=== PATIENT | female | born 1970 | race Caucasian/White ===

== ENCOUNTER 2020-06-26 14:46 | Emergency (ER) | payer OTHER, SELFPAY ==
--- NOTE | ~2020-06-26 | XR_ITS ---
EXAMINATION: XR CHEST CLINICAL INFORMATION: Shortness of breath and asthma COMPARISON: Previous chest x-ray most recent February 2019 TECHNIQUE: 2 views of the chest were obtained. FINDINGS: The cardiac and mediastinal contours are normal. There is question of a right perihilar infiltrate. The lungs are otherwise clear. There is no pleural effusion or pneumothorax. Bony structures are unremarkable. XR/XR chest 2V IMPRESSION: Question right perihilar infiltrate.
[2020-06-26 15:43] VITALS: BP 142/94; PULSE 96; RESP 18; TEMP 36.7; O2SAT 95; BMI 36.6
--- NOTE | 2020-06-26 16:09 | ED.ASTHMA ---
HPI - Asthma General Chief Complaint: Asthma Stated Complaint: ASTHMA Time Seen by Provider: 06/26/20 16:05 Source: patient Mode of arrival: ambulatory Limitations: no limitations History of Present Illness HPI Narrative: 49-year-old female with a past medical history of asthma taking wixela daily, albuterol p.r.n. here with complaints of cough with wheezing x6 days. Patient tells me she has been taking her wixela daily. She has noticed several times after taking her albuterol that she gets nasal congestion, throat itching and so she has stopped using this due to concern for allergy. No fevers, chills. Cough is not productive. No shortness of breath or chest pain or leg swelling or pain. Related Data Previous Rx's Medication Instructions Recorded azithromycin 250 mg PO DAILY 4 Days #4 tab 06/26/20 levalbuterol tartrate [Xopenex HFA] 2 inh INHALATION Q4-6H PRN #15 g 06/26/20 prednisone 40 mg PO DAILY #8 tab 06/26/20 Allergies Allergy/AdvReac Type Severity Reaction Status Date / Time sulfamethoxazole Allergy Mild ANAPHYLAXIS Verified 06/26/20 15:42 [From Bactrim] trimethoprim [From Bactrim] Allergy Mild ANAPHYLAXIS Verified 06/26/20 15:42 citric acid Allergy Unknown ABD PAIN Verified 06/26/20 15:42 [From LINDA-SELTZER] sodium bicarbonate Allergy Unknown ABD PAIN Verified 06/26/20 15:42 [From LINDA-SELTZER] Review of Systems Review of Systems: Yes all other systems are reviewed and are negative Constitutional: Constitutional: Reports no additional constitutional complaints, Denies body ache(s), Denies chills, Denies fever(s), Denies headache(s) and Denies weakness Eyes: Eyes: Reports no additional eye complaints and Denies change in vision ENT: Reports system reviewed and no additional complaints, except as documented, Denies dizziness, Denies headache(s), Denies nasal congestion, Denies nasal discharge and Denies neck pain Cardiovascular: Cardiovascular: Reports no additional cardiovascular complaints, Denies chest pain, Denies leg edema and Denies dyspnea Respiratory: Respiratory: Reports no additional respiratory complaints, Reports cough and Denies dyspnea Gastrointestinal: Gastrointestinal: Reports no additional gastrointestinal complaints, Denies abdominal pain, Denies diarrhea, Denies nausea and Denies vomiting Genitourinary: Genitourinary: Reports no additional female genitourinary complaints and Denies urinary incontinence Musculoskeletal: Musculoskeletal: Reports no additional musculoskeletal complaints, Denies back pain, Denies arthralgias, Denies joint swelling, Denies neck pain, Denies numbness and Denies tingling Integumentary/Breasts: Skin/Breast: Reports system reviewed and no additional complaints, except as docu and Denies rash Neurologic: Reports system reviewed and no additional complaints, except as documented, Denies Abnormal speech present, Denies dizziness, Denies headache(s), Denies numbness, Denies tingling and Denies weakness PMFSH Past Medical History Attestation statement: The following information was validated with the patient. Source: old records reviewed and nursing notes reviewed Medical History Asthma Social History Social History Smoked in Last 30 Days: No Use of substances other than those prescribed or required for medical reasons: No Advance Directives: No Advance Directives Information Provided: No Physical Exam Vital Signs: Vital Signs: Last Vital Signs Temp 98.1 F 06/26/20 15:43 Pulse 103 H 06/26/20 18:20 Resp 18 06/26/20 17:40 BP 170/96 H 06/26/20 17:40 Pulse Ox 97 06/26/20 17:40 Body Mass Index 36.6 Const: General: cooperative, healthy appearing, comfortable and no acute distress Orientation/consciousness: patient oriented x3 Limitations: no limitations HENMT: Head: Yes normal to inspection Ears: hearing grossly normal bilaterally General nose exam: Normal external nose present Face and sinus: Yes normal facial exam Mouth: Normal oral and palatal mucosa present Throat: Yes posterior oropharynx normal Eyes: General: appearance normal, both eyes and all related structures Pupils: Equal, round and reactive pupils present Neck: Neck: Yes normal visual inspection Chest: Chest palpation & inspection: normal inspection of the chest Resp: Other: Mild expiratory wheezing throughout Effort & Inspection: normal respiratory effort Cardio: Rate: regular rate Rhythm: regular rhythm Peripheral pulses: Peripheral pulses 2+ throughout GI: Inspection: Yes normal to inspection Palpation (GI): Soft to palpation and nontender Auscultation: normal bowel sounds Back/Spine/Pelvis: Thoracic/Lumbar Spine: thoracic and lumbar spine normal to inspection Skin: General skin exam: no rashes or lesions noted Neuro: General: patient oriented x3, no focal motor deficits and normal sensation to monofilament Cranial nerves: Yes Equal, round and reactive pupils present Cognition (Neuro): normal cognition Speech: No Abnormal speech present Gait exam (Neuro): Normal gait present Motor exam (neuro): 5/5 motor strength present throughout Extrem: General: Yes normal to inspection, Yes no pedal edema and Yes no calf tenderness Course Course Course Narrative: 49-year-old female with past medical history of asthma here with cough and wheezing x6 days. taking her controller medication daily as prescribed. Has not been taking her albuterol due to complaints of associated nasal congestion and throat itching and concern for allergy to the inhaler. On exam has mild expiratory wheezing. Oxygen saturations stable. Will check chest x-ray. COVID screen. Try Xopenex. Give prednisone p.o. 1700-X-ray concerning for RLL PNA. Will add PO antibiotics. 1820-Covid screen negative. Tolerated xopenex with no issues. Feeling improved. Stable saturations. Afebrile. Lung sounds are improved. Reviewed worrisome signs and symptoms when to return to the emergency department. Comfortable with discharge home. [facility] - Asthma Medical Records Attestation: I reviewed the patient's medical records. Lab Data Attestation: I reviewed the patient's lab results. Labs: Lab Results 06/26/20 Range/Units 17:38 COVID-19 (INDRA) Negative (Negative) COVID-19 Clin Com See Note Imaging Data Chest x-ray: Attestation: I personally reviewed and interpreted this imaging study as follows: Radiologist's impression: EXAMINATION: XR CHEST CLINICAL INFORMATION: Shortness of breath and asthma COMPARISON: Previous chest x-ray most recent February 2019 TECHNIQUE: 2 views of the chest were obtained. FINDINGS: The cardiac and mediastinal contours are normal. There is question of a right perihilar infiltrate. The lungs are otherwise clear. There is no pleural effusion or pneumothorax. Bony structures are unremarkable. XR/XR chest 2V IMPRESSION: Question right perihilar infiltrate. Discharge Plan Discharge Clinical Impression: Asthma with acute exacerbation Qualifiers: Asthma severity: mild Asthma persistence: persistent Qualified Code(s): J45.31 - Mild persistent asthma with (acute) exacerbation Pneumonia Qualifiers: Pneumonia type: due to unspecified organism Laterality: right Lung location: lower lobe of lung Qualified Code(s): J18.9 - Pneumonia, unspecified organism Patient Disposition: Home, Self-Care Instructions: Asthma (ED), Bacterial Pneumonia (ED) Additional Instructions: Start your prednisone and antibiotics tomorrow Use Xopenex instead of albuterol Follow-up with your operational meteorologist and rn birthing Prescriptions: New azithromycin 250 mg tablet 250 mg PO DAILY 4 Days Qty: 4 RF: 0 prednisone 20 mg tablet 40 mg PO DAILY Qty: 8 RF: 0 levalbuterol tartrate [Xopenex HFA] 45 mcg/actuation HFA aerosol inhaler 2 inh inhalation Q4-6H PRN (Reason: shortness of breath or wheezing) Qty: 15 RF: 0 Referrals: Aroldo Ryan MD [Primary Care Provider] - 2 days Interventions: ED Discharge Assessment Last Done: 06/26/20 18:53 Discharge Date/Time: 06/26/20 18:54
[2020-06-26] MEDS: predniSONE 20 MG TABLET 60 MG PO (17:36)
[2020-06-26] MEDS: Azithromycin 500 MG TABLET PO (17:36)
[2020-06-26 17:40] VITALS: BP 170/96; PULSE 97; RESP 18; O2SAT 97
[2020-06-26 18:08] LABS: COVID-19 Test Negative (Negative)
[2020-06-26 18:20] VITALS: PULSE 103; O2SAT 95
== END 2020-06-26 18:54 | disposition home or self-care (01) ==
PROVIDERS: Nurse Practitioner Family; Emergency Provider Emergency Medicine Emergency Medical Services; PCP Internal Medicine
DX: J18.9 Pneumonia, unspecified organism (principal); J45.31 Mild persistent asthma with (acute) exacerbation; Z20.822 Contact with and (suspected) exposure to COVID-19
CPT/HCPCS: 36415; 71046; 87635; 94640; 99284

== ENCOUNTER 2020-08-09 20:09 | Emergency (ER) | payer OTHER, SELFPAY ==
--- NOTE | ~2020-08-09 | XR_ITS ---
EXAMINATION: XR CHEST CLINICAL INFORMATION: Dyspnea. COMPARISON: Chest x-ray 06/26/2020 TECHNIQUE: 2 views of the chest were obtained. FINDINGS: No significant abnormality is noted involving the heart, lungs, mediastinum, bony thorax or soft tissues. XR/XR chest 2V IMPRESSION: Unremarkable examination.
[2020-08-09 20:14] VITALS: BP 147/78; PULSE 121; RESP 40; TEMP 36.6; O2SAT 95; BMI 80.6
--- NOTE | 2020-08-09 20:19 | ECG_ITS ---
Test Reason : ASTHMA Blood Pressure : / mmHG Vent. Rate : 109 BPM Atrial Rate : 109 BPM P-R Int : 146 ms QRS Dur : 066 ms QT Int : 352 ms P-R-T Axes : 068 017 -12 degrees QTc Int : 474 ms Sinus tachycardia Low voltage QRS Cannot rule out Anterior infarct (cited on or before 20-MAY-2010) Abnormal ECG When compared with ECG of 14-DEC-2018 23:18, No significant change was found Referred By: Generic ED Physician Electronically Signed By:Palmer Hall
[2020-08-09 20:49] LABS: MANUAL DIFF FLAG NO
--- NOTE | 2020-08-09 20:49 | ED.ASTHMA ---
HPI - Asthma General Chief Complaint: Asthma Stated Complaint: Asthma Time Seen by Provider: 08/09/20 20:49 Source: patient Mode of arrival: ambulatory Limitations: no limitations History of Present Illness HPI Narrative: cough and increasing wheezing, recent pneumonia, COVID was negative during pneumonia MD complaint: asthma attack Onset (ago): day(s) Severity: moderate Associated symptoms: dry cough Asthma History: history of frequent attacks Related Data Current Asthma Therapy: inhaled bronchodilator Previous Rx's Medication Instructions Recorded azithromycin 250 mg PO DAILY 4 Days #4 tab 06/26/20 levalbuterol tartrate [Xopenex HFA] 2 inh INHALATION Q4-6H PRN #15 g 06/26/20 prednisone 40 mg PO DAILY #8 tab 06/26/20 prednisone 60 mg PO DAILY #12 tab 08/09/20 Allergies Allergy/AdvReac Type Severity Reaction Status Date / Time sulfamethoxazole Allergy Mild ANAPHYLAXIS Verified 08/09/20 20:14 [From Bactrim] trimethoprim [From Bactrim] Allergy Mild ANAPHYLAXIS Verified 08/09/20 20:14 citric acid Allergy Unknown ABD PAIN Verified 08/09/20 20:14 [From LINDA-SELTZER] sodium bicarbonate Allergy Unknown ABD PAIN Verified 08/09/20 20:14 [From LINDA-SELTZER] Review of Systems Constitutional: Constitutional: Reports no additional constitutional complaints Eyes: Eyes: Reports no additional eye complaints ENT: Denies dizziness Cardiovascular: Cardiovascular: Reports no additional cardiovascular complaints Respiratory: Respiratory: Reports as per HPI Gastrointestinal: Gastrointestinal: Reports no additional gastrointestinal complaints Genitourinary: Genitourinary: Reports no additional female genitourinary complaints Musculoskeletal: Musculoskeletal: Reports no additional musculoskeletal complaints Integumentary/Breasts: Skin/Breast: Denies rash Neurologic: Reports system reviewed and no additional complaints, except as documented, Denies dizziness and Denies Sensory deficit (Neuro) Psychiatric: Psychiatric: Denies anxiety [facility] Past Medical History Medical History Asthma Social History Social History Advance Directives: No Advance Directives Information Provided: Yes Physical Exam Vital Signs: Vital Signs: Last Vital Signs Temp 97.9 F 08/09/20 20:14 Pulse 121 H 08/09/20 20:14 Resp 40 H 05/14/21 20:14 BP 147/78 H 08/09/20 20:14 Pulse Ox 95 08/09/20 20:14 Body Mass Index 80.6 Const: Other: slightly short of breath, coughing Nutritional Appearance: obese Orientation/consciousness: oriented to person and patient oriented x3 Limitations: no limitations HENMT: Head: Yes normal to inspection Ears: external ears normal General nose exam: Normal external nose present Mouth: Normal oral and palatal mucosa present and oropharynx normal Throat: Yes posterior oropharynx normal Eyes: General: appearance normal, both eyes and all related structures Neck: Other: supple Neck: Yes normal visual inspection Chest: Chest palpation & inspection: normal inspection of the chest Resp: Other: bilateral wheezing Cardio: Other: tachycardia Jugular venous distension: no JVD Rate: regular rate Rhythm: regular rhythm Heart sounds: S1 normal heart sound present and S2 normal heart sound present GI: Inspection: Yes normal to inspection Palpation (GI): Soft to palpation, nontender and No hepatosplenomegaly present Auscultation: normal bowel sounds : General: Yes no CVA tenderness Back/Spine/Pelvis: Back: no CVA tenderness Skin: General skin exam: no rashes or lesions noted Neuro: General: oriented to person and patient oriented x3 Cranial nerves: Yes CN's II-XII intact bilaterally Motor exam (neuro): 5/5 motor strength present throughout Sensory Exam: No Sensory deficit (Neuro) Extrem: General: Yes normal to inspection Psych: Appearance: grossly normal Course Course Course Narrative: xray, covid, blood work all negative will dc on prednisone for asthma exacerbation MDM - Asthma Differential Diagnosis Differential diagnosis: Likely Acute exacerbation, Pneumonia and COPD exacerbation Lab Data Result diagrams: 08/09/20 20:44 08/09/20 20:44 Labs: Lab Results 08/09/20 08/09/20 08/09/20 Range/Units 20:23 20:44 20:44 WBC 11.9 H (4.8-10.8) X10*3/uL RBC 4.62 (4.20-5.50) X10*6/uL Hgb 13.3 (12.0-16.0) g/dl Hct 39.5 (37-47) % MCV 85.5 (80-98) fL MCH 28.8 (27.0-33.0) pg MCHC 33.7 (31.0-35.0) g/dl RDW 12.5 (11.0-16.0) % Plt Count 279 (160-400) X10*3/uL MPV 11.3 (9.4-12.3) fL Immature Gran % (Auto) 0.4 (0.0-0.4) % Neut % (Auto) 45.7 (45-73) % Lymph % (Auto) 32.8 (20-40) % Power % (Auto) 9.6 (2-11) % Eos % (Auto) 10.8 H (0-4) % Baso % (Auto) 0.7 (0-2) % Lymph # (Auto) 3.9 (1.2-4.9) X10*3/uL Power # (Auto) 1.1 (0.1-1.2) X10*3/uL Eos # (Auto) 1.3 H (0.0-0.4) X10*3/uL Baso # (Auto) 0.1 (0.0-0.2) X10*3/uL Abs Immat Gran (auto) 0.05 H (0.00-0.03) X10*3/uL Absolute Neuts (auto) 5.4 (2.0-8.3) X10*3/uL Absolute Nucleated RBC 0.000 (0.0-0.012) X10*3/uL Nucleated RBC % (auto) 0.0 (0.0-0.2) /100WBC Hold Blue Top SEE NOTE Sodium (135-145) mmol/L Potassium (3.3-5.1) mmol/L Chloride (96-108) mmol/L Carbon Dioxide (22-29) mmol/L Anion Gap (12-20) BUN (9-16) mg/dL Creatinine (0.5-1.4) mg/dL Estim Creat Clear Calc Estimated GFR Random Glucose (60-115) mg/dL Calcium (8.4-10.2) mg/dL Troponin I High Sens (<3.5-17.0) ng/L B-Natriuretic Peptide (<100) pg/mL Coronavirus (PCR) NEGATIVE (Negative) Influenza Type A (PCR) NEGATIVE (Negative) Influenza Type B (PCR) NEGATIVE (Negative) RSV RNA Qual (PCR) NEGATIVE (Negative) 08/09/20 08/09/20 Range/Units 20:44 20:44 WBC (4.8-10.8) X10*3/uL RBC (4.20-5.50) X10*6/uL Hgb (12.0-16.0) g/dl Hct (37-47) % MCV (80-98) fL MCH (27.0-33.0) pg MCHC (31.0-35.0) g/dl RDW (11.0-16.0) % Plt Count (160-400) X10*3/uL MPV (9.4-12.3) fL Immature Gran % (Auto) (0.0-0.4) % Neut % (Auto) (45-73) % Lymph % (Auto) (20-40) % Power % (Auto) (2-11) % Eos % (Auto) (0-4) % Baso % (Auto) (0-2) % Lymph # (Auto) (1.2-4.9) X10*3/uL Power # (Auto) (0.1-1.2) X10*3/uL Eos # (Auto) (0.0-0.4) X10*3/uL Baso # (Auto) (0.0-0.2) X10*3/uL Abs Immat Gran (auto) (0.00-0.03) X10*3/uL Absolute Neuts (auto) (2.0-8.3) X10*3/uL Absolute Nucleated RBC (0.0-0.012) X10*3/uL Nucleated RBC % (auto) (0.0-0.2) /100WBC Hold Blue Top Sodium 137 (135-145) mmol/L Potassium 3.8 (3.3-5.1) mmol/L Chloride 101 (96-108) mmol/L Carbon Dioxide 26 (22-29) mmol/L Anion Gap 14 (12-20) BUN 17 H (9-16) mg/dL Creatinine 0.79 (0.5-1.4) mg/dL Estim Creat Clear Calc 166.2 Estimated GFR > 60 Random Glucose 130 H (60-115) mg/dL Calcium 9.7 (8.4-10.2) mg/dL Troponin I High Sens < 3.5 (<3.5-17.0) ng/L B-Natriuretic Peptide < 10 (<100) pg/mL Coronavirus (PCR) (Negative) Influenza Type A (PCR) (Negative) Influenza Type B (PCR) (Negative) RSV RNA Qual (PCR) (Negative) Imaging Data Chest x-ray: Radiologist's impression: no infiltrate Discharge Plan Discharge Clinical Impression: Asthma with acute exacerbation Qualifiers: Asthma severity: mild Asthma persistence: persistent Qualified Code(s): J45.31 - Mild persistent asthma with (acute) exacerbation Patient Disposition: Home, Self-Care Instructions: Asthma (ED) Prescriptions: New prednisone 20 mg tablet 60 mg PO DAILY Qty: 12 RF: 0 No Action azithromycin 250 mg tablet 250 mg PO DAILY 4 Days Qty: 4 RF: 0 prednisone 20 mg tablet 40 mg PO DAILY Qty: 8 RF: 0 levalbuterol tartrate [Xopenex HFA] 45 mcg/actuation HFA aerosol inhaler 2 inh inhalation Q4-6H PRN (Reason: shortness of breath or wheezing) Qty: 15 RF: 0 Referrals: Aroldo Ryan MD [Primary Care Provider] - 5 days
[2020-08-09 20:50] LABS: Basophils Absolute Auto 0.1 X10*3/uL (0.0-0.2); Basophils Percent Auto 0.7 % (0-2); Eosinophils Absolute Auto 1.3 X10*3/uL (0.0-0.4); Eosinophils Percent Auto 10.8 % (0-4); Hematocrit 39.5 % (37-47); Hemoglobin 13.3 g/dl (12.0-16.0); Imm Gran Abs Auto 0.05 X10*3/uL (0.00-0.03); Imm Gran Pct Auto 0.4 % (0.0-0.4); Lymphocytes Absolute Auto 3.9 X10*3/uL (1.2-4.9); Lymphocytes Percent Auto 32.8 % (20-40); Mean Corpuscular HGB Conc 33.7 g/dl (31.0-35.0); Mean Corpuscular Hemoglobin 28.8 pg (27.0-33.0); Mean Corpuscular Volume 85.5 fL (80-98); Mean Platelet Volume 11.3 fL (9.4-12.3); Monocytes Absolute Auto 1.1 X10*3/uL (0.1-1.2); Monocytes Percent Auto 9.6 % (2-11); Neutrophils Absolute Auto 5.4 X10*3/uL (2.0-8.3); Neutrophils Percent Auto 45.7 % (45-73); Platelet Count 279 X10*3/uL (160-400); Red Blood Count 4.62 X10*6/uL (4.20-5.50); Red Cell Distribution Width 12.5 % (11.0-16.0); White Blood Count 11.9 X10*3/uL (4.8-10.8)
[2020-08-09 21:10] LABS: Influenza A PCR NEGATIVE (Negative); Influenza B PCR NEGATIVE (Negative); Resp Syncy Virus RNA Qual PCR NEGATIVE (Negative); SARS COV2 PCR INHOUSE NEGATIVE (Negative)
[2020-08-09 21:11] LABS: Anion Gap 14 (12-20); Blood Urea Nitrogen 17 mg/dL (9-16); Calcium 9.7 mg/dL (8.4-10.2); Carbon Dioxide 26 mmol/L (22-29); Chloride 101 mmol/L (96-108); Creatinine Clr Calc Pharmacy 166.2; Estimated Glomerular Filt Rate > 60; Glucose Random 130 mg/dL (60-115); Potassium 3.8 mmol/L (3.3-5.1); Sodium 137 mmol/L (135-145)
[2020-08-09 21:19] LABS: B Type Natriuretic Peptide < 10 pg/mL (<100); Troponin-I High Sensitivity < 3.5 ng/L (<3.5-17.0)
[2020-08-09] MEDS: methylPREDNISolone Sod Succ 125 MG/2 ML VIAL IVPUSH (21:34)
[2020-08-09 21:53] VITALS: BP 145/96; PULSE 108; RESP 17; TEMP 36.7; O2SAT 95
== END 2020-08-09 22:10 | disposition home or self-care (01) ==
PROVIDERS: Emergency Provider Emergency Medicine; PCP Internal Medicine
DX: J45.31 Mild persistent asthma with (acute) exacerbation (principal); Z79.899 Other long term (current) drug therapy; Z20.822 Contact with and (suspected) exposure to COVID-19
CPT/HCPCS: 0241U; 36415; 71046; 80048; 83880; 84484; 85025; 93005; 96374; 99285; J2930

== ENCOUNTER 2020-10-16 14:29 | Emergency (ER) | payer OTHER, SELFPAY ==
--- NOTE | ~2020-10-16 | XR_ITS ---
EXAMINATION: XR CHEST CLINICAL INFORMATION: Dyspnea COMPARISON: None TECHNIQUE: Frontal view of the chest was obtained. FINDINGS: The cardiac and mediastinal contours are normal. There are prominent perihilar markings questionable for asthma or bronchitis, particularly on the right. The lungs are otherwise clear without evidence of a pneumonia. There is no pleural effusion or pneumothorax. Bony structures are unremarkable. XR/XR chest 1V IMPRESSION: Prominent perihilar markings questionable for asthma or bronchitis. No evidence of pneumonia.
[2020-10-16 14:36] VITALS: BP 169/94; PULSE 107; RESP 16; TEMP 36.9; O2SAT 96; BMI 36.6
[2020-10-16 15:31] LABS: Influenza A PCR NEGATIVE (Negative); Influenza B PCR NEGATIVE (Negative); Resp Syncy Virus RNA Qual PCR NEGATIVE (Negative); SARS COV2 PCR INHOUSE NEGATIVE (Negative)
--- NOTE | 2020-10-16 17:17 | ED.SOB ---
HPI - SOB/Dyspnea General Chief Complaint: Dyspnea Stated Complaint: Asthma Time Seen by Provider: 10/16/20 17:17 Source: patient Mode of arrival: ambulatory Limitations: no limitations History of Present Illness HPI Narrative: cough and wheezing for one week MD elicited complaint: shortness of breath and cough Pertinent past history: asthma Onset (ago): week(s) Timing: constant Severity: moderate Exacerbating factors: other (weather) Known history of: asthma Related Data Previous Rx's Medication Instructions Recorded azithromycin 250 mg PO DAILY 4 Days #4 tab 06/26/20 levalbuterol tartrate [Xopenex HFA] 2 inh INHALATION Q4-6H PRN #15 g 06/26/20 prednisone 40 mg PO DAILY #8 tab 06/26/20 prednisone 60 mg PO DAILY #12 tab 08/09/20 albuterol sulfate 1.25 mg INHALATION QID PRN #90 ml 10/16/20 prednisone 60 mg PO DAILY #12 tab 10/16/20 Allergies Allergy/AdvReac Type Severity Reaction Status Date / Time sulfamethoxazole Allergy Mild ANAPHYLAXIS Verified 10/16/20 14:41 [From Bactrim] trimethoprim [From Bactrim] Allergy Mild ANAPHYLAXIS Verified 10/16/20 14:41 citric acid Allergy Unknown ABD PAIN Verified 10/16/20 14:41 [From LINDA-SELTZER] sodium bicarbonate Allergy Unknown ABD PAIN Verified 10/16/20 14:41 [From LINDA-SELTZER] Review of Systems Constitutional: Constitutional: Reports no additional constitutional complaints Eyes: Eyes: Reports no additional eye complaints ENT: Denies dizziness Cardiovascular: Cardiovascular: Reports no additional cardiovascular complaints Respiratory: Respiratory: Reports as per HPI Gastrointestinal: Gastrointestinal: Reports no additional gastrointestinal complaints Genitourinary: Genitourinary: Reports no additional female genitourinary complaints Musculoskeletal: Musculoskeletal: Reports no additional musculoskeletal complaints Integumentary/Breasts: Skin/Breast: Denies rash Neurologic: Reports system reviewed and no additional complaints, except as documented, Denies dizziness and Denies Sensory deficit (Neuro) Psychiatric: Psychiatric: Denies anxiety PMF Past Medical History Medical History Asthma Social History Social History Advance Directives: No Advance Directives Information Provided: Yes Physical Exam Vital Signs: Vital Signs: Last Vital Signs Temp 98.5 F 10/16/20 14:36 Pulse 94 10/16/20 17:34 Resp 16 10/16/20 14:36 BP 169/94 H 10/16/20 14:36 Pulse Ox 96 10/16/20 14:36 Body Mass Index 36.6 Const: Other: slightly short of breath Nutritional Appearance: overweight Orientation/consciousness: oriented to person and patient oriented x3 Limitations: no limitations HENMT: Head: Yes normal to inspection Ears: external ears normal General nose exam: Normal external nose present Mouth: Normal oral and palatal mucosa present and oropharynx normal Throat: Yes posterior oropharynx normal Eyes: General: appearance normal, both eyes and all related structures Neck: Other: supple Neck: Yes normal visual inspection Chest: Chest palpation & inspection: normal inspection of the chest Resp: Other: Diffuse wheezing Cardio: Jugular venous distension: no JVD Rate: regular rate Rhythm: regular rhythm Heart sounds: S1 normal heart sound present and S2 normal heart sound present GI: Inspection: Yes normal to inspection Palpation (GI): Soft to palpation, nontender and No hepatosplenomegaly present Auscultation: normal bowel sounds : General: Yes no CVA tenderness Back/Spine/Pelvis: Back: no CVA tenderness Skin: General skin exam: no rashes or lesions noted Neuro: General: oriented to person and patient oriented x3 Cranial nerves: Yes CN's II-XII intact bilaterally Motor exam (neuro): 5/5 motor strength present throughout Sensory Exam: No Sensory deficit (Neuro) Extrem: General: Yes normal to inspection Psych: Appearance: grossly normal Course Reevaluation(s) Reevaluation #1: Breathing much better will dc home with albuterol and prednisone Time: 18:40 MDM - SOB/Dyspnea Lab Data Labs: Lab Results 10/16/20 Range/Units 14:46 Coronavirus (PCR) NEGATIVE (Negative) Influenza Type A (PCR) NEGATIVE (Negative) Influenza Type B (PCR) NEGATIVE (Negative) RSV RNA Qual (PCR) NEGATIVE (Negative) Imaging Data Chest x-ray: Radiologist's impression: IMPRESSION: Prominent perihilar markings questionable for asthma or bronchitis. No evidence of pneumonia. Discharge Plan Discharge Clinical Impression: Asthma with exacerbation Qualifiers: Asthma severity: moderate Asthma persistence: persistent Qualified Code(s): J45.41 - Moderate persistent asthma with (acute) exacerbation Patient Disposition: Home, Self-Care Instructions: Asthma (ED) Prescriptions: New prednisone 20 mg tablet 60 mg PO DAILY Qty: 12 RF: 0 albuterol sulfate 1.25 mg/3 mL solution for nebulization 1.25 mg inhalation QID PRN (Reason: shortness of breath or wheezing) Qty: 90 RF: 0 No Action azithromycin 250 mg tablet 250 mg PO DAILY 4 Days Qty: 4 RF: 0 prednisone 20 mg tablet 40 mg PO DAILY Qty: 8 RF: 0 levalbuterol tartrate [Xopenex HFA] 45 mcg/actuation HFA aerosol inhaler 2 inh inhalation Q4-6H PRN (Reason: shortness of breath or wheezing) Qty: 15 RF: 0 prednisone 20 mg tablet 60 mg PO DAILY Qty: 12 RF: 0
[2020-10-16] MEDS: Albuterol/Iprat 2.5/0.5MG 3 ML AMPUL.NEB INHALE (17:33)
[2020-10-16 17:34] VITALS: PULSE 94; O2SAT 97
[2020-10-16] MEDS: predniSONE 20 MG TABLET 60 MG PO (17:58)
== END 2020-10-16 19:06 | disposition home or self-care (01) ==
PROVIDERS: Emergency Provider Emergency Medicine; PCP Internal Medicine
DX: J45.41 Moderate persistent asthma with (acute) exacerbation (principal); Z20.822 Contact with and (suspected) exposure to COVID-19
CPT/HCPCS: 0241U; 36415; 71045; 94640; 99284

== ENCOUNTER 2020-12-07 16:17 | Emergency (ER) | payer OTHER, SELFPAY ==
[2020-12-07 19:40] VITALS: BP 151/93; PULSE 105; RESP 18; TEMP 36.7; O2SAT 93; BMI 36.6
[2020-12-07] MEDS: Cyclobenzaprine HCl 10 MG TABLET PO (21:57)
--- NOTE | 2020-12-07 22:32 | ED.EXTPRO ---
HPI - Extremity Problem General Chief complaint: Extremity Injury, Upper Stated complaint: Left arm numbness Time Seen by Provider: 12/07/20 21:35 Source: patient Mode of arrival: ambulatory Limitations: no limitations History of Present Illness HPI Narrative: Patient reports that for the last week she has had symptoms of left arm tingling. Denies any other neurological symptoms. Denies any chest pain, says SOB with or without exertion, presyncope or syncope. She reports that she has left shoulder and left neck pain and upper back tightness. Patient denies any other symptoms MD Complaint: extremity pain Onset (ago): day(s) Pain Consistency: intermittent Location: left Related Data Previous Rx's Medication Instructions Recorded azithromycin 250 mg tablet 250 mg PO DAILY 4 Days #4 tab 06/26/20 levalbuterol tartrate 45 2 inh INHALATION Q4-6H PRN #15 g 06/26/20 mcg/actuation aerosol inhaler (Xopenex HFA) prednisone 20 mg tablet 40 mg PO DAILY #8 tab 06/26/20 prednisone 20 mg tablet 60 mg PO DAILY #12 tab 08/09/20 albuterol sulfate 1.25 mg/3 mL 1.25 mg INHALATION QID PRN #90 ml 10/16/20 solution for nebulization prednisone 20 mg tablet 60 mg PO DAILY #12 tab 10/16/20 cyclobenzaprine 10 mg tablet 10 mg PO BEDTIME PRN #10 tab 12/07/20 Allergies Allergy/AdvReac Type Severity Reaction Status Date / Time sulfamethoxazole Allergy Mild ANAPHYLAXIS Verified 10/16/20 14:41 [From Bactrim] trimethoprim [From Bactrim] Allergy Mild ANAPHYLAXIS Verified 10/16/20 14:41 citric acid Allergy Unknown ABD PAIN Verified 10/16/20 14:41 [From LINDA-SELTZER] sodium bicarbonate Allergy Unknown ABD PAIN Verified 10/16/20 14:41 [From LINDA-SELTZER] Review of Systems Review of Systems: Constitutional : No Weight loss, No Fever, No Chills, No Night Sweats, No Fatigue, No Malaise ENT/Mouth : No Hearing loss, No Ear Pain, No Nasal Congestion, No Sinus Pain, No Hoarseness, No sore throat, No Rhinorrhea, No Swallowing Difficulty Eyes: No Eye Pain, No Swelling, No Redness, No Foreign Body, No Discharge, No Vision Changes Cardiovascular : No Chest Pain, No SOB, No Dyspnea on Exertion, No Orthopnea, No Edema, No Palpitations Respiratory : No Cough, No Sputum, No Wheezing, No Smoke Exposure, No Dyspnea Gastrointestinal : No Nausea, No Vomiting, No Diarrhea, No Constipation, No abdominal Pain, No Hematochezia, No Melena Genitourinary : no irregular bleeding, No Dysuria, No Urinary Frequency, No Hematuria, No Urinary Incontinence, No Urgency, No Flank Pain, No Urinary Flow Changes, No Hesitancy Musculoskeletal : No joint pain, Myalgias, No Joint Swelling Skin : No Skin Lesions, No rash Neuro : No Weakness, No Numbness, No Paresthesias, left arm tingling, No Loss of Consciousness, No Dizziness, No Headache Psych : No Anxiety/Panic, No Depression, No SI/HI/AH/VH, No Social Issues, Heme/Lymph: No Bruising, No Bleeding,No Lymphadenopathy Endocrine : No Polyuria, No Polydipsia, No Temperature Intolerance Yes all other systems are reviewed and are negative PMFSH Past Medical History Medical History Asthma Social History Social History Advance Directives: No Patient : No Physical Exam Vital Signs: Vital Signs: Last Vital Signs Temp 98.1 F 12/07/20 19:40 Pulse 105 H 12/07/20 19:40 Resp 18 12/07/20 19:40 BP 151/93 H 12/07/20 19:40 Pulse Ox 93 12/07/20 19:40 Body Mass Index 36.6 Const: General: healthy appearing, no acute distress and well developed Nutritional Appearance: well nourished Orientation/consciousness: patient oriented x3 HENMT: Head: Yes normal to inspection, Yes normocephalic and Yes atraumatic Eyes: General: appearance normal, both eyes and all related structures Neck: Neck: Yes normal visual inspection, Yes full ROM and Yes trachea midline Thyroid: Thyroid normal Chest: Chest palpation & inspection: normal inspection of the chest Breast/axilla inspection: normal inspection of the breasts Breast/axilla palpation: normal palpation of the breasts Resp: Auscultation: clear to auscultation bilaterally Cardio: Rate: regular rate Rhythm: regular rhythm GI: Inspection: Yes normal to inspection and No distended Palpation (GI): Soft to palpation, not firm, nontender, no guarding and No hepatosplenomegaly present Auscultation: normal bowel sounds : General: Yes no CVA tenderness Back/Spine/Pelvis: Back: no CVA tenderness Cervical Spine: normal cervical lordosis and other (Left trapezius muscle tenderness) Thoracic/Lumbar Spine: thoracic and lumbar spine normal to inspection and paraspinal muscle tenderness Skin: General skin exam: elasticity normal, turgor normal and dry skin Neuro: General: patient oriented x3 Course Course Course Narrative: 50-year-old female is here today for complaining of left arm tingling. Patient reports that she does have a tightness in her upper back and her left side of her neck. Exam is negative for cervical spine thoracic spine or lumbar spine tenderness. She does have tightness in her upper trapezius area and anterior deltoid. Patient denies any injury. Reports that this is been going on for a week. I will medicate her with cyclobenzaprine and if she will have improvement I will send her home on that and will have her follow-up with her PCP for possible physical therapy Reevaluation(s) Reevaluation #1: Patient reports improvement after cyclobenzaprine. We will send her home to follow up with PCP for physical therapy. Patient was instructed to return to emergency department if her symptoms will get worse or if she will experience any additional concerning symptoms. Patient reports that her will be picking her up Discharge Plan Discharge Clinical Impression: Neck muscle strain, Muscle strain of left shoulder Patient Disposition: Home, Self-Care Instructions: Muscle Strain (ED), Neck Pain (ED) Additional Instructions: You were seen here today for tingling to your left arm. Your upper back and neck muscles are very tight and tender to touch. Please follow-up with your primary care doctor in 2-3 days for possible physical therapy. You were given cyclobenzaprine in the emergency department with some improvement, however you will most likely need physical therapy to help with those symptoms. You may return to emergency department if your symptoms will get rid worse or if you will experience any additional concerning symptoms Prescriptions: New cyclobenzaprine 10 mg tablet 10 mg PO BEDTIME PRN (Reason: muscle spasm) Qty: 10 RF: 0 No Action azithromycin 250 mg tablet 250 mg PO DAILY 4 Days Qty: 4 RF: 0 prednisone 20 mg tablet 40 mg PO DAILY Qty: 8 RF: 0 levalbuterol tartrate [Xopenex HFA] 45 mcg/actuation HFA aerosol inhaler 2 inh inhalation Q4-6H PRN (Reason: shortness of breath or wheezing) Qty: 15 RF: 0 prednisone 20 mg tablet 60 mg PO DAILY Qty: 12 RF: 0 prednisone 20 mg tablet 60 mg PO DAILY Qty: 12 RF: 0 albuterol sulfate 1.25 mg/3 mL solution for nebulization 1.25 mg inhalation QID PRN (Reason: shortness of breath or wheezing) Qty: 90 RF: 0 Referrals: Aroldo Ryan MD [Primary Care Provider] - 2 days Stand Alone Forms: Work/School Release Interventions: ED Discharge Assessment Last Done: 12/07/20 22:51 Discharge Date/Time: 12/07/20 22:54
== END 2020-12-07 22:54 | disposition home or self-care (01) ==
PROVIDERS: Emergency Provider Emergency Medicine Emergency Medical Services; PCP Internal Medicine
DX: S16.1XXA Strain of muscle, fascia and tendon at neck level, initial encounter (principal); S46.912A Strain of unspecified muscle, fascia and tendon at shoulder and upper arm level, left arm, initial encounter; M54.2 Cervicalgia; M25.512 Pain in left shoulder; X58.XXXA Exposure to other specified factors, initial encounter; Y93.9 Activity, unspecified; Y92.9 Unspecified place or not applicable; Y99.9 Unspecified external cause status; Z79.899 Other long term (current) drug therapy
CPT/HCPCS: 99284

== ENCOUNTER 2021-12-19 20:31 | Emergency (ER) | payer OTHER, SELFPAY ==
[2021-12-19 20:38] VITALS: BP 148/83; PULSE 79; RESP 18; TEMP 36.5; O2SAT 99
[2021-12-19 20:50] VITALS: BP 148/83; PULSE 79; RESP 18; TEMP 36.5; O2SAT 99; BMI 32.0
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
[2021-12-20] MEDS: Acetaminophen 325 MG TABLET 650 MG PO (00:13)
[2021-12-20] MEDS: Ketorolac Tromethamine 30 MG/ML VIAL 15 MG IM (00:16)
[2021-12-20] MEDS: Diphth,Pertus(ACell),Tet Adult 0.5 ML SYRINGE IM (00:16)
== END 2021-12-20 00:49 | disposition home or self-care (01) ==
PROVIDERS: Emergency Provider Student in an Organized Health Care Education/Training Program; PCP Internal Medicine
DX: S06.0X0A Concussion without loss of consciousness, initial encounter (principal); W20.8XXA Other cause of strike by thrown, projected or falling object, initial encounter; Y93.89 Activity, other specified; Y92.810 Car as the place of occurrence of the external cause; Y99.9 Unspecified external cause status
CPT/HCPCS: 90471; 90715; 96372; 99284; J1885

== ENCOUNTER 2022-11-28 19:36 | Emergency (ER) | payer OTHER, SELFPAY ==
--- NOTE | ~2022-11-28 | XR_ITS ---
EXAMINATION: XR KNEE, RIGHT CLINICAL INFORMATION: Pain and swelling COMPARISON: None available. TECHNIQUE: Four views of the right knee. FINDINGS: No fracture or joint effusion. Alignment is anatomic. Joint spaces are maintained. No abnormal soft tissue calcification. XR/XR knee RT 4V IMPRESSION: Normal right knee.
--- NOTE | ~2022-11-28 | XR_ITS ---
EXAMINATION: XR KNEE, LEFT CLINICAL INFORMATION: Pain and swelling COMPARISON: None available. TECHNIQUE: Four views of the left knee. FINDINGS: Faint cortical opacities within the meta-epiphysis of the left fibular head with subtle sclerotic fracture line, likely representing a subacute healing non-displaced fracture. No additional fractures are identified. No joint effusion. Soft tissue structures are within normal limits. No radiopaque foreign bodies.
[2022-11-28 19:48] VITALS: BP 147/86; PULSE 91; RESP 18; TEMP 36.6; O2SAT 98; BMI 31.8
--- NOTE | 2022-11-28 19:48 | ED.LOWEXIN ---
HPI - Extremity Injury (Lower) General Chief Complaint: Extremity Injury, Lower Stated Complaint: gianna. knee pain swelling Time Seen by Provider: 11/28/22 22:27 Source: patient Mode of arrival: ambulatory Limitations: no limitations History of Present Illness HPI Narrative: 52 yo female presenting to the ER for evaluation of bilateral knee pain and swelling that started yesterday, left worse than right. No known injury. complaint: knee injury Onset (ago): day(s) (1) Type of Injury: unknown Place: home Severity: moderate Severity scale (1-10): 8 Relieving factors: immobilization and rest Exacerbating factors: weight bearing, movement and palpation Associated symptoms: able to partially bear weight Other symptoms: none Related Data Previous Rx's Medication Instructions Recorded azithromycin 250 mg tablet 250 mg PO DAILY 4 days #4 tabs 06/26/20 levalbuterol tartrate 45 2 inh inhalation Q4-6H PRN 06/26/20 mcg/actuation aerosol inhaler shortness of breath or wheezing (Xopenex HFA) #15 grams prednisone 20 mg tablet 40 mg PO DAILY #8 tabs 06/26/20 prednisone 20 mg tablet 60 mg PO DAILY #12 tabs 08/09/20 albuterol sulfate 1.25 mg/3 mL 1.25 mg (3 mL) inhalation QID PRN 10/16/20 solution for nebulization shortness of breath or wheezing #90 mL prednisone 20 mg tablet 60 mg PO DAILY #12 tabs 10/16/20 cyclobenzaprine 10 mg tablet 10 mg PO BEDTIME PRN muscle spasm 12/07/20 #10 tabs Allergies Allergy/AdvReac Type Severity Reaction Status Date / Time sulfamethoxazole Allergy Mild ANAPHYLAXIS Verified 10/16/20 14:41 [From Bactrim] trimethoprim [From Bactrim] Allergy Mild ANAPHYLAXIS Verified 10/16/20 14:41 citric acid Allergy Unknown ABD PAIN Verified 10/16/20 14:41 [From LINDA-SELTZER] sodium bicarbonate Allergy Unknown ABD PAIN Verified 10/16/20 14:41 [From LINDA-SELTZER] Review of Systems Review of Systems: Yes all other systems are reviewed and are negative PMFSH Past Medical History Medical History Asthma Social History Social History Advance Directives: No Advance Directives Information Provided: No Physical Exam Vital Signs: Vital Signs: Last Vital Signs Temp 97.8 F 11/28/22 19:48 Pulse 95 11/28/22 23:51 Resp 18 11/28/22 23:51 BP 140/78 H 11/28/22 23:51 Pulse Ox 98 11/28/22 23:51 O2 Del Method Room Air 11/28/22 23:51 BMI result Body Mass Index 31.8 Appearance: Alert. Oriented X3. No acute distress. HEENT: normal inspection CVS: Normal heart rate and rhythm. Pulses normal. Respiratory: No respiratory distress. Skin: Skin warm and dry. Normal skin color. Normal skin turgor. No rashes. Extremities: normal inspection of bilateral knees, right knee with FROM. nontender. left knee with pain w/ passive ROM past 90 degrees. medial tenderness. no erythema or warmth Neuro: Oriented X 3. No motor deficit. No sensory deficit. Course Course Course Narrative: RME: 52yo F w/PMHx Left knee meniscal surgery c/o bilateral > L knee swelling & pain since yesterday. denies injury/fall Ambulating w/limping gait XRs ordered Full HPI, ROS and PE to be performed by primary ED provider. Medical Decision Making Medical Decision Making MDM Narrative: 52 yo female presenting to the ER for evaluation of non-traumatic bilateral knee pain, L>R. no swelling on exam. mild tenderness and limited flexion of the left knee x-rays reviewed - no appreciated fx or effusion provided crutches given pain will refer to ortho for further evaluation and treatment Differential Diagnosis Differential Diagnoses: The differential diagnosis associated with the presentation includes OA, inflammatory arthritis, effusion, ligamentous injury Independent Interpretation I performed an independent interpretation of an: Plain X-Ray Interpretation: xrays of bilateral knees reviewed - do not appreciate any fibular fx on the left. Radiology Impression Discussion of test interpretation with radiology: I have reviewed the radiologist's reading. Radiologist Impression: EXAMINATION: XR KNEE, RIGHT? CLINICAL INFORMATION: Pain and swelling? COMPARISON: None available.? TECHNIQUE: Four views of the right knee. FINDINGS: No fracture or joint effusion. Alignment is anatomic. Joint spaces are maintained. No abnormal soft tissue calcification.? XR/XR knee RT 4V IMPRESSION: Normal right knee. EXAMINATION: XR KNEE, LEFT CLINICAL INFORMATION: Pain and swelling? COMPARISON: None available.? TECHNIQUE: Four views of the left knee. FINDINGS: Faint cortical opacities within the meta-epiphysis of the left fibular head with subtle sclerotic fracture line, likely representing a subacute healing? non-displaced fracture. No additional fractures are identified. No joint effusion. Soft tissue structures are within normal limits. No radiopaque foreign bodies. External Record Review External record reviewed: Outpatient record and Prior outpatient radiology Prescription Management I considered prescription management with: Pain Medication Critical Care Time Critical Care Time Critical Care Time: No Discharge Plan Discharge Clinical Impression: Acute knee pain Patient Disposition: Home, Self-Care Instructions: Knee Pain (ED) Additional Instructions: Your x-rays today did not show any acute fractures. Rest your knee and elevate your it when possible. Recommend FLETCHER wrap for support and compression. Use ice several times per day for the next 48 hours. You may bear weight as tolerated. If pain is too severe, use crutches until better. Take Motrin and/or Tylenol as needed for pain. Follow up with your doctor as needed. If you have ongoing pain, recommend following up with your orthopedic provider If you develop new or worsening symptoms call 911 or come back to the ER for further evaluation. Prescriptions: No Action azithromycin 250 mg tablet 250 mg PO DAILY 4 Days Qty: 4 0RF prednisone 20 mg tablet 40 mg PO DAILY Qty: 8 0RF levalbuterol tartrate [Xopenex HFA] 45 mcg/actuation HFA aerosol inhaler 2 inh inhalation Q4-6H PRN (Reason: shortness of breath or wheezing) Qty: 15 0RF prednisone 20 mg tablet 60 mg PO DAILY Qty: 12 0RF prednisone 20 mg tablet 60 mg PO DAILY Qty: 12 0RF albuterol sulfate 1.25 mg/3 mL solution for nebulization 1.25 mg inhalation QID PRN (Reason: shortness of breath or wheezing) Qty: 90 0RF cyclobenzaprine 10 mg tablet 10 mg PO BEDTIME PRN (Reason: muscle spasm) Qty: 10 0RF Interventions: ED Discharge Assessment Last Done: 11/28/22 23:52 Discharge Date/Time: 11/28/22 23:53
[2022-11-28 23:51] VITALS: BP 140/78; PULSE 95; RESP 18; O2SAT 98
== END 2022-11-28 23:53 | disposition home or self-care (01) ==
PROVIDERS: Emergency Provider Internal Medicine; PCP Internal Medicine
DX: M25.562 Pain in left knee (principal); M25.561 Pain in right knee
CPT/HCPCS: 73564; 99283; 99284

== ENCOUNTER 2024-03-27 18:31 | Emergency (ER) | payer OTHER, SELFPAY ==
--- NOTE | ~2024-03-27 | CT_ITS ---
CLINICAL HISTORY: right upper abdo pain CT abdomen and pelvis with contrast Comparison: None Findings: The lung bases are clear. Stones are present within the gallbladder. No biliary ductal dilatation. No pericholecystic stranding. Spleen, adrenal glands, pancreas and liver are unremarkable. Kidneys are symmetric and normal in size without hydronephrosis. No ureteral stones. No bowel obstruction, pneumoperitoneum, or pneumatosis. No ascites. Pelvic contents unremarkable. Normal appendix. No acute fracture. IMPRESSION: No acute findings. Cholelithiasis. This document has been electronically signed by: Christopher Lilly MD on 03/28/2024 02:37:35
[2024-03-27 18:43] VITALS: BP 150/87; PULSE 94; RESP 20; TEMP 36.8; O2SAT 98; BMI 32.3
--- NOTE | 2024-03-27 18:44 | ED_ITS ---
HPI - General Adult General Chief complaint: Abdominal Pain Stated complaint: sent by for CT scan, ?kidney stones Time Seen by Provider: 03/27/24 23:32 History of Present Illness ED Provider: Chad COTTO narrative: The patient presents with a 2 day history of right-sided abdominal pain. She has had a tubal ligation but no other abdominal surgeries. She indicates that the pain is in the right upper quadrant and that it wraps around to her right flank. She has no urinary symptoms associated with this. She says that she had some brief upper abdominal pain few weeks ago and was seen at PCP's office at [facility] and had an ultrasound that showed she had gallstones. She is not certain that today's pain is similar to the pain that prompted the ultrasound however. She has had no fever, sweats, chills. Pain is somewhat positional. It is worse with lying down or sitting for awhile. The pain seems to be exclusively on the right side. No shortness of breath. No cough or sputum. No fever, sweats, chills. Related Data Previous Rx's ?Medication ?Instructions ?Recorded azithromycin 250 mg tablet 250 mg PO DAILY 4 days #4 tabs 06/26/20 levalbuterol tartrate 45 2 inh inhalation Q4-6H PRN 06/26/20 mcg/actuation aerosol inhaler shortness of breath or wheezing (Xopenex HFA) #15 grams prednisone 20 mg tablet 40 mg (2 x 20 mg) PO DAILY #8 tabs 06/26/20 prednisone 20 mg tablet 60 mg (3 x 20 mg) PO DAILY #12 tabs 08/09/20 albuterol sulfate 1.25 mg/3 mL 1.25 mg (3 mL) inhalation QID PRN 10/16/20 solution for nebulization shortness of breath or wheezing #90 mL prednisone 20 mg tablet 60 mg (3 x 20 mg) PO DAILY #12 tabs 10/16/20 cyclobenzaprine 10 mg tablet 10 mg PO BEDTIME PRN muscle spasm 12/07/20 #10 tabs Allergies Allergy/AdvReac Type Severity Reaction Status Date / Time sulfamethoxazole Allergy Mild ANAPHYLAXIS Verified 03/27/24 18:45 [From Bactrim] trimethoprim [From Bactrim] Allergy Mild ANAPHYLAXIS Verified 03/27/24 18:45 citric acid Allergy Unknown ABD PAIN Verified 03/27/24 18:45 [From ANEL] sodium bicarbonate Allergy Unknown ABD PAIN Verified 03/27/24 18:45 [From ANEL] Review of Systems 2 Review of Systems: Yes all other systems are reviewed and are negative [facility] Past Medical History Medical History Asthma Physical Exam ED Vital Signs: Vital Signs - 24 hr 03/27/24 18:43 03/28/24 00:41 03/28/24 03:04 Temperature 98.2 F 98.0 F 97.8 F Pulse Rate 94 77 78 Respiratory Rate 20 16 14 Blood Pressure 150/87 H 143/93 H 135/88 Pulse Oximetry 98 97 95 Oxygen Delivery Method Room Air Room Air Room Air 03/28/24 03:07 Temperature 97.8 F Pulse Rate 78 Respiratory Rate 14 Blood Pressure 135/88 Pulse Oximetry 95 Oxygen Delivery Method Room Air BMI result Body Mass Index 32.3 Const Other: The patient is awake and alert. She is not look toxic or in distress. She does not appear obviously uncomfortable or obviously ill in any way. [facility] Head: Yes normal to inspection Face and sinus: Yes normal facial exam Mouth: Normal oral and palatal mucosa present and moist mucous membranes Eyes General: appearance normal, both eyes and all related structures Neck Neck: Yes full ROM Resp Effort & Inspection: normal respiratory effort Auscultation: clear to auscultation bilaterally Cardio Rate: regular rate Rhythm: regular rhythm Heart sounds: S1 normal heart sound present and S2 normal heart sound present GI Other: There is some mild right upper quadrant and mild right lower quadrant tenderness. No left-sided tenderness. No obvious significant focal tenderness. No rebound or guarding. Back/Spine/Pelvis Other: No definite CVA percussion tenderness on the right flank. Left flank definitely has no CVA percussion tenderness Skin Other: Skin is dry and unremarkable Neuro Other: The patient is awake and alert with a normal mental status. Cranial nerves are grossly intact. She moves her extremities normally and appropriately. Extrem Other: No peripheral edema. No calf swelling or tenderness. No asymmetry. Course Course Course Narrative: RME, this is a rapid medical exam performed by Ascencion Cotton please refer to primary provider for complete H&P- 53-year-old female presents for evaluation of right lower abdominal pain that radiates to her right flank. She was sent here by urgent care for a CT scan. Plan for labs and urinalysis. Will defer CT at this time pending labs urinalysis to determine if it is more appropriate with or without contrast Medications Administered Discontinued Medications Generic Name Dose Route Start Last Admin Trade Name Fabricioq PRN Reason Stop Dose Admin Sodium Chloride 1,000 mls @ 999 mls/hr 03/28/24 01:00 03/28/24 01:06 Ns IV 03/28/24 02:00 999 mls/hr .Q1H1M JUSTUS Administration Iohexol 85 ml 03/28/24 01:36 03/28/24 01:36 Iohexol 350 Mg/Ml 100 Ml Infus..Btl IV 03/28/24 01:37 85 ml ONCE ONE Administration Ketorolac Tromethamine 10 mg 03/28/24 00:53 03/28/24 01:04 Ketorolac Tromethamine 15 Mg/Ml Vial IVPUSH 03/28/24 00:54 10 mg ONCE ONE Administration Medical Decision Making Medical Decision Making [facility] Narrative: The patient is a 53-year-old woman who presents to the emergency room with 2 days of right upper abdominal pain that wraps around to the right back. She was recently seen at her PCPs office for a pain that may not have been the same kind of pain but which prompted an ultrasound of her gallbladder. The ultrasound revealed gallstones. The the patient has some right upper quadrant tenderness but she really does not seem to have an acute abdomen. She does not really have much in the way of right-sided CVA percussion tenderness. She has no urinary symptoms. She has a normal white count with lymphocytosis. This would be unusual for an acute surgical process. LFTs and lipase are normal. Urinalysis shows a small amount of blood. Clinically the patient's presentation was not highly suggestive it either of ureteral colic or biliary colic or other acute potentially surgical process. The pain is positional which suggests the possibility of a musculoskeletal etiology. A CT scan with IV contrast of the abdomen and pelvis showed gallstones but no signs of cholecystitis. No evidence of kidney stone or ureteral stone. No evidence of other acute intra-abdominal process. The patient felt better after dose of ketorolac. She was reassured that there does not seem to be an acutely surgical process at work. She will be discharged use ibuprofen and acetaminophen as needed. She should follow up with regular doctor. She should return if she is feeling worse. Lab Data 03/27/24 19:53 03/27/24 19:53 Labs: Lab Results 03/27/24 03/28/24 Range/Units 19:53 00:33 WBC 7.6 (4.8-10.8) X10*3/uL RBC 4.43 (4.20-5.50) X10*6/uL Hgb 12.5 (12.0-16.0) g/dl Hct 37.2 (37.0-47.0) % MCV 84.0 (80.0-98.0) fL MCH 28.2 (27.0-33.0) pg MCHC 33.6 (31.0-35.0) g/dl RDW 12.2 (11.0-16.0) % Plt Count 265 (160-400) X10*3/uL MPV 11.2 (9.4-12.3) fL Immature Gran % (Auto) 0.3 (0.0-0.4) % Neut % (Auto) 40.8 L (45-73) % Lymph % (Auto) 42.2 H (20-40) % Mcdowell % (Auto) 11.1 H (2-11) % Eos % (Auto) 4.9 H (0-4) % Baso % (Auto) 0.7 (0-2) % Lymph # (Auto) 3.2 (1.2-4.9) X10*3/uL Mcdowell # (Auto) 0.8 (0.1-1.2) X10*3/uL Eos # (Auto) 0.4 (0.0-0.4) X10*3/uL Baso # (Auto) 0.1 (0.0-0.2) X10*3/uL Abs Immat Gran (auto) 0.02 (0.00-0.03) X10*3/uL Absolute Neuts (auto) 3.1 (2.0-8.3) x10*3/uL Absolute Nucleated RBC 0.000 (0.0-0.012) X10*3/uL Nucleated RBC % (auto) 0.0 (0.0-0.2) /100WBC Sodium 138 (135-145) mmol/L Potassium 3.5 (3.3-5.1) mmol/L Chloride 106 (96-108) mmol/L Carbon Dioxide 24 (22-29) mmol/L Anion Gap 12 (12-20) BUN 15 (9-16) mg/dL Creatinine 0.65 (0.5-1.4) mg/dL Estim Creat Clear Calc 110.8 Estimated GFR > 60 Random Glucose 87 (60-115) mg/dL Calcium 9.1 D (8.4-10.2) mg/dL Total Bilirubin 0.5 (0.0-1.0) mg/dL AST 22 (5-31) U/L ALT 23 (0-31) U/L Alkaline Phosphatase 63 (39-117) U/L Total Protein 7.6 (6.5-8.0) g/dL Albumin 4.3 (3.5-5.0) g/dL Lipase 32 (8-78) U/L Urine Color Yellow Urine Appearance Cloudy Urine pH 7.0 (5.0-9.0) Ur Specific [place] 1.025 (1.005-1.025) Urine Protein Trace (Neg-Trace) mg/dL Urine Glucose (UA) Negative (Negative) mg/dL Urine Ketones Negative (Negative) mg/dL Urine Blood Trace H (Negative) Urine Nitrite Negative (Negative) Ur Leukocyte Esterase Negative (Negative) Urine RBC 11-20 H (0-2) /HPF Urine WBC 0-5 (0-5) /HPF Ur Squamous Epith Cells 11-20 (0-2) /HPF Urine Bacteria 1+ (None Seen) Hyaline Casts 0-2 (0-2) /LPF Discharge Plan Discharge Clinical Impression: Right sided abdominal pain Patient Disposition: Home, Self-Care Additional Instructions: Your testing today does not show any acutely dangerous process to explain your symptoms. The CT scan of your abdomen shows gallstones but it does not show any inflammation of the gallbladder. The CT scan does not show any kidney stones. Your blood testing and urine testing are also reassuring. It is possible your pain may be musculoskeletal pain. You may use acetaminophen (Tylenol) and ibuprofen as needed for discomfort. Please follow up with your regular doctor to discuss this further. Return to the emergency room if worse. Prescriptions: No Action azithromycin 250 mg tablet 250 mg PO DAILY 4 Days Qty: 4 0RF prednisone 20 mg tablet 40 mg PO DAILY Qty: 8 0RF levalbuterol tartrate [Xopenex HFA] 45 mcg/actuation HFA aerosol inhaler 2 inh inhalation Q4-6H PRN (Reason: shortness of breath or wheezing) Qty: 15 0RF prednisone 20 mg tablet 60 mg PO DAILY Qty: 12 0RF prednisone 20 mg tablet 60 mg PO DAILY Qty: 12 0RF albuterol sulfate 1.25 mg/3 mL solution for nebulization 1.25 mg inhalation QID PRN (Reason: shortness of breath or wheezing) Qty: 90 0RF cyclobenzaprine 10 mg tablet 10 mg PO BEDTIME PRN (Reason: muscle spasm) Qty: 10 0RF Referrals: Aroldo Ryan MD [Primary Care Provider] - (Right-sided abdominal pain) Stand Alone Forms: Work/School Release Interventions: ED Discharge Assessment Last Done: 03/28/24 03:07 Discharge Date/Time: 03/28/24 03:14 Print Language: Setswana
[2024-03-27 19:57] LABS: MANUAL DIFF FLAG NO
[2024-03-27 19:58] LABS: Basophils Absolute Auto 0.1 X10*3/uL (0.0-0.2); Basophils Percent Auto 0.7 % (0-2); Eosinophils Absolute Auto 0.4 X10*3/uL (0.0-0.4); Eosinophils Percent Auto 4.9 % (0-4); Hematocrit 37.2 % (37.0-47.0); Hemoglobin 12.5 g/dl (12.0-16.0); Imm Gran Abs Auto 0.02 X10*3/uL (0.00-0.03); Imm Gran Pct Auto 0.3 % (0.0-0.4); Lymphocytes Absolute Auto 3.2 X10*3/uL (1.2-4.9); Lymphocytes Percent Auto 42.2 % (20-40); Mean Corpuscular HGB Conc 33.6 g/dl (31.0-35.0); Mean Corpuscular Hemoglobin 28.2 pg (27.0-33.0); Mean Platelet Volume 11.2 fL (9.4-12.3); Monocytes Absolute Auto 0.8 X10*3/uL (0.1-1.2); Monocytes Percent Auto 11.1 % (2-11); Neutrophils Absolute Auto 3.1 x10*3/uL (2.0-8.3); Neutrophils Percent Auto 40.8 % (45-73); Platelet Count 265 X10*3/uL (160-400); Red Blood Count 4.43 X10*6/uL (4.20-5.50); Red Cell Distribution Width 12.2 % (11.0-16.0); White Blood Count 7.6 X10*3/uL (4.8-10.8)
[2024-03-27 20:16] LABS: Alanine Aminotransferase 23 U/L (0-31); Albumin Level 4.3 g/dL (3.5-5.0); Alkaline Phosphatase 63 U/L (39-117); Anion Gap 12 (12-20); Aspartate Amino Transferase 22 U/L (5-31); Bilirubin Total 0.5 mg/dL (0.0-1.0); Blood Urea Nitrogen 15 mg/dL (9-16); Calcium 9.1 mg/dL (8.4-10.2); Carbon Dioxide 24 mmol/L (22-29); Chloride 106 mmol/L (96-108); Creatinine Clr Calc Pharmacy 110.8; Estimated Glomerular Filt Rate > 60; Glucose Random 87 mg/dL (60-115); Lipase 32 U/L (8-78); Potassium 3.5 mmol/L (3.3-5.1); Sodium 138 mmol/L (135-145); Total Protein 7.6 g/dL (6.5-8.0)
[2024-03-28 00:39] LABS: Appearance Urine Cloudy; Color Urine Yellow; Glucose Urine UA Negative (Negative); Leukocyte Esterase Urine Negative (Negative); Nitrite Urine Negative (Negative); Specific Gravity - Urine 1.025 (1.005-1.025); UMIC TRIGGER UACC YES; Urine Blood Trace (Negative); Urine Ketones Negative (Negative); Urine Protein Trace mg/dL (Neg-Trace)
[2024-03-28 00:41] VITALS: BP 143/93; PULSE 77; RESP 16; TEMP 36.7; O2SAT 97
[2024-03-28 00:44] LABS: Bacteria Urine 1+ (None Seen); Hyaline Casts Urine 0-2 /LPF (0-2); WBC Urine 0-5 /HPF (0-5)
[2024-03-28] MEDS: Ketorolac Tromethamine 15 MG/ML VIAL 10 MG IVPUSH (01:04)
[2024-03-28] MEDS: 0.9 % Sodium Chloride 1,000 ML 999 ML IV (01:06)
[2024-03-28] MEDS: iohexoL 350 MG/ML 100 ML INFUS..BTL 85 ML IV (01:36)
[2024-03-28 03:04] VITALS: BP 135/88; PULSE 78; RESP 14; TEMP 36.6; O2SAT 95
[2024-03-28 03:07] VITALS: BP 135/88; PULSE 78; RESP 14; TEMP 36.6; O2SAT 95
== END 2024-03-28 03:14 | disposition home or self-care (01) ==
PROVIDERS: Physician Assistant; Emergency Provider Emergency Medicine; PCP Internal Medicine
DX: R10.31 Right lower quadrant pain (principal); R10.11 Right upper quadrant pain
CPT/HCPCS: 36415; 74177; 80053; 81001; 83690; 85025; 96374; 99284; J1885; Q9967

== ENCOUNTER → 2024-03-28 00:52 | Outpatient (BNV) | payer OTHER, SELFPAY | PROVIDERS: Emergency Provider Emergency Medicine; PCP Internal Medicine; Visit Provider Radiology Diagnostic Radiology | DX: R10.11 Right upper quadrant pain (principal) | CPT/HCPCS: 74177 ==

== ENCOUNTER 2024-11-03 14:14 | Emergency (ER) | payer OTHER, SELFPAY ==
--- NOTE | ~2024-11-03 | XR_ITS ---
EXAMINATION: XR CHEST CLINICAL INFORMATION: elevated blood pressure COMPARISON: Numerous priors, most recently 10/16/2020. TECHNIQUE: 2 views of the chest were obtained. FINDINGS: The cardiac, hilar, and mediastinal contours are normal. The lungs are clear bilaterally. There is no pneumothorax or pleural effusion. There is no focal osseous or soft tissue abnormality. XR/XR chest 2V IMPRESSION: No active pulmonary disease. Electronically signed by: King Joshi MD 11/03/2024 03:09 PM EDT
[2024-11-03 14:28] VITALS: BP 202/95; PULSE 89; RESP 18; TEMP 36.4; O2SAT 97; BMI 34.8
--- NOTE | 2024-11-03 14:29 | ED_ITS ---
HPI - General Adult General Chief complaint: General Medical Stated complaint: High Blood Pressure in the 200s Time Seen by Provider: 11/03/24 19:29 Source: patient Mode of arrival: ambulatory Limitations: no limitations History of Present Illness ED Provider: Luzmaria Elizabeth PA-C HPI narrative: Patient is a 54 year old assigned female at with a history of asthma presenting to the emergency department today with concerns about her blood pressure. 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 Patient states that she is having no symptoms, no headache, no vision changes, no chest pain. Patient denies any dizziness, lightheadedness, abdominal pain, nausea, vomiting, fever, chills, blurry vision, double vision, loss of vision, difficulty breathing, shortness of breath, back pain, night sweats, pain with urination, increased urinary frequency, increased urinary urgency, blood in her urine or stool, syncope or a near syncopal episode, recent trauma or falls, bowel incontinence, bladder incontinence, or any other complaints at this time. Relieving factors: none Exacerbating factors: none Associated symptoms: denies other symptoms Treatments prior to arrival: none Related Data Previous Rx's ?Medication ?Instructions ?Recorded azithromycin 250 mg tablet 250 mg PO DAILY 4 days #4 t abs 06/26/20 levalbuterol tartrate 45 2 inh inhalation Q4-6H PRN 0 06/26/20 mcg/actuation aerosol inhaler shortness of breath or w heezing (Xopenex HFA) #15 grams prednisone 20 mg tablet 40 mg (2 x 20 mg) PO DAILY # 8 tabs 06/26/20 prednisone 20 mg tablet 60 mg (3 x 20 mg) PO DAILY # 12 tabs 08/09/20 albuterol sulfate 1.25 mg/3 mL 1.25 mg (3 mL) inhalati on QID PRN 10/16/20 solution for nebulization shortness of breath or wheez ing #90 mL prednisone 20 mg tablet 60 mg (3 x 20 mg) PO DAILY # 12 tabs 10/16/20 cyclobenzaprine 10 mg tablet 10 mg PO BEDTIME PRN musc le spasm 12/07/20 #10 tabs Allergies Allergy/AdvReac Type Severity Reaction Status Date / Time sulfamethoxazole (From Allergy Mild ANAPHYLAXIS Verified 11/03/24 14:29 Bactrim) trimethoprim (From Bactrim) Allergy Mild ANAPHYLAXIS Verified 11/03/24 14:29 citric acid (From Allergy Unknown ABD PAIN Verified 11/03/24 14:29 LINDA-MARY) sodium bicarbonate (From Allergy Unknown ABD PAIN Verified 11/03/24 14:29 LINDA-MARY) Review of Systems 2 Constitutional: Constitutional: Reports no additional constitutional complaints, Denies chills, Denies fever(s) and Denies night sweats Eyes: Eyes: Reports no additional eye complaints, Denies blurry vision, Denies change in vision, Denies diplopia, Denies eye discharge, Denies loss of vision and Denies eye pain ENT: Denies dizziness Cardiovascular: Cardiovascular: Reports no additional cardiovascular complaints, Denies chest pain, Denies lightheadedness, Denies Loss of Consciousness and Denies dyspnea Respiratory: Respiratory: Reports no additional respiratory complaints and Denies dyspnea Gastrointestinal: Gastrointestinal: Reports no additional gastrointestinal complaints, Denies abdominal pain, Denies melena, Denies hematochezia, Denies change in bowel habits and Denies change in stool character Genitourinary: Genitourinary: Denies hematuria, Denies urinary frequency, Denies dysuria, Denies urinary incontinence, Denies urinary hesitancy and Denies urinary urgency Musculoskeletal: Musculoskeletal: Reports no additional musculoskeletal complaints, Denies numbness and Denies tingling Neurologic: Denies dizziness, Denies loss of vision, Denies numbness and Denies tingling Psychiatric: Psychiatric: Reports no additional psychiatric complaints Endocrine: Endocrine: Reports no additional endocrine complaints Hematologic/Lymphatic: Hematologic/Lymphatic: Reports no additional hematologic/lymphatic complaints Allergic/Immunologic: Allergic/Immunologic: Reports no additional allergic/immunologic complaints [facility] Past Medical History Attestation statement: The following information was validated with the patient. Source: old records reviewed and nursing notes reviewed Medical History Asthma Social History Social History Advance Directives: No Advance Directives Information Provided: No Physical Exam ED Vital Signs: Vital Signs - 24 hr 11/03/24 14:28 11/03/24 19:01 11/03/24 19:30 Temperature 97.5 F 97.8 F 98 F Pulse Rate 89 82 79 Respiratory Rate 18 18 16 Blood Pressure 202/95 H 158/88 H 166/93 H Pulse Oximetry 97 97 95 Oxygen Delivery Method Room Air Room Air Room Air BMI result Body Mass Index 34.8 Const General: cooperative, no acute distress, alert and awake Nutritional Appearance: well nourished Orientation/consciousness: patient oriented x3 HENMT Head: Yes normal to inspection and Yes atraumatic Ears: hearing grossly normal bilaterally and external ears normal General nose exam: Normal external nose present, no nasal discharge noted and no epistaxis Face and sinus: Yes normal facial exam, No abrasion and No laceration Mouth: Normal oral and palatal mucosa present, no drooling and no muffled voice Eyes General: appearance normal, both eyes and all related structures Periorbital: periorbital findings normal Eyelids: Yes eyelids normal Conjunctivae: conjunctivae normal Pupils: Equal, round and reactive pupils present EOM: EOMs intact bilaterally Neck Neck: Yes normal visual inspection and Yes full ROM Resp Effort & Inspection: normal respiratory effort and able to speak in complete sentences Neuro General: patient oriented x3, moves all extremities and CN's II-XI intact bilaterally Cranial nerves: Yes Equal, round and reactive pupils present Cognition (Neuro): normal cognition Extrem General: Yes normal to inspection, Yes full ROM and Yes capillary refill normal Psych Appearance: grossly normal Mental Status: mental status grossly normal Affect: normal affect Attitude: cooperative Thought process: Normal thought process present Thought content: Normal thought content present Insight: Good insight present (Psych) Course Course Course Narrative: RME performed by Luzmaria Elizabeth PA-C. Patient is a 54 year old assigned female at presenting to the emergency department with elevated blood pressure. 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 Patient has no symptoms. No headache, no blurry vision, no double vision. Detailed physical exam and review of systems are deferred to the glue bone drier. EKG, labs, imaging ordered. Patient placed back in the waiting room pending room availability and results. Medical Decision Making Medical Decision Making MDM Narrative: Patient is a 54 year old assigned female at with a history of asthma presenting to the emergency department today with concerns about her blood pressure. Patient's physical exam was unremarkable. Patient's blood work was unremarkable. Patient's EKG was unremarkable. Patient's chest x-ray showed no acute process. Patient was hypertensive while in the department but remained asymptomatic with no evidence of hypertensive urgency or emergency. While in the department, the patient's blood pressure decreased without intervention. I explained my physical exam findings as well as all test results to the patient. I answered all questions asked by the patient. I stressed the importance of the patient taking her medication as directed (either prescribed or as the over the counter packaging recommends). I stressed the importance of the patient following up with her primary care provider. I stressed the importance of the patient returning to the emergency department immediately if she were to develop any dizziness, shortness of breath, difficulty breathing, chest pain, blurry vision, loss of vision, nausea, vomiting, abdominal pain, fever, chills, back pain, or any other complaints. Patient verbalized agreement and understanding with this treatment plan and discharge. Differential Diagnosis Differential Diagnoses: The differential diagnosis associated with the presentation includes Asymptomatic HTN Elevated blood pressure Admission/Observation Consideration of admission/observation: Escalation of care including admission/observation considered Patient would have been admitted to the hospital had her work up had any findings where hospital admission was appropriate and her clinical presentation warranted hospital admission. Lab Data [facility] Lab Attestation statement: I reviewed the patient's lab results. My interpretation of these results are in the [facility] Rationale portion of this note. 11/03/24 14:41 11/03/24 14:41 Labs: Lab Results 11/03/24 Range/Units 14:41 WBC 7.9 (4.8-10.8) X10*3/uL RBC 4.45 (4.20-5.50) X10*6/uL Hgb 12.8 (12.0-16.0) g/dl Hct 37.2 (37.0-47.0) % MCV 83.6 (80.0-98.0) fL MCH 28.8 (27.0-33.0) pg MCHC 34.4 (31.0-35.0) g/dl RDW 12.3 (11.0-16.0) % Plt Count 270 (160-400) X10*3/uL MPV 11.1 (9.4-12.3) fL Immature Gran % (Auto) 0.3 (0.0-0.4) % Neut % (Auto) 43.3 L (45-73) % Lymph % (Auto) 41.3 H (20-40) % [place]andt % (Auto) 11.3 H (2-11) % Eos % (Auto) 3.3 (0-4) % Baso % (Auto) 0.5 (0-2) % Lymph # (Auto) 3.3 (1.2-4.9) X10*3/uL [place] # (Auto) 0.9 (0.1-1.2) X10*3/uL Eos # (Auto) 0.3 (0.0-0.4) X10*3/uL Baso # (Auto) 0.0 (0.0-0.2) X10*3/uL Abs Immat Gran (auto) 0.02 (0.00-0.03) X10*3/uL Absolute Neuts (auto) 3.4 (2.0-8.3) x10*3/uL Absolute Nucleated RBC 0.000 (0.0-0.012) X10*3/uL Nucleated RBC % (auto) 0.0 (0.0-0.2) /100WBC Sodium 137 (135-145) mmol/L Potassium 3.6 (3.3-5.1) mmol/L Chloride 100 (96-108) mmol/L Carbon Dioxide 27 (22-29) mmol/L Anion Gap 14 (12-20) BUN 13 (9-16) mg/dL Creatinine 0.66 (0.5-1.4) mg/dL Estim Creat Clear Calc 112.3 Estimated GFR > 60 Random Glucose 86 (60-115) mg/dL Calcium 9.5 (8.4-10.2) mg/dL Total Bilirubin 0.5 (0.0-1.0) mg/dL AST 24 (5-31) U/L ALT 30 (0-31) U/L Alkaline Phosphatase 66 (39-117) U/L Troponin I High Sens < 2.7 (<3.5-17.0) ng/L Total Protein 8.0 (6.5-8.0) g/dL Albumin 4.9 (3.5-5.0) g/dL Independent Interpretation I performed an independent interpretation of an: EKG and Plain X-Ray Interpretation: My interpretation is in agreement with the radiologist's impression of this imaging study. L EXAMINATION: XR CHEST CLINICAL INFORMATION: elevated blood pressure COMPARISON: Numerous priors, most recently 10/16/2020. TECHNIQUE: 2 views of the chest were obtained. FINDINGS: The cardiac, hilar, and mediastinal contours are normal. The lungs are clear bilaterally. There is no pneumothorax or pleural effusion. There is no focal osseous or soft tissue abnormality. XR/XR chest 2V IMPRESSION: No active pulmonary disease. Electronically signed by: King Joshi MD 11/03/2024 03:09 PM EDT RP Dictated By: King Joshi MD Signed By: Electronically signed by King Joshi MD 11/03/24 1509 I independently interpreted this EKG and am in agreement with the below findings: Vent. Rate: 94 BPM Atrial Rate: 94 BPM P-R Int: 156 ms QRS Dur: 72 ms QT Int: 362 ms P-R-T Axes: 50 -5 9 degrees QTcB Int: 452 ms Normal sinus rhythm with sinus arrhythmia Possible Left atrial enlargement Anterior infarct (cited on or before 20-May-2010) When compared with ECG of 09-Aug-2020 21:59, No significant change was found Electronically Signed By: VINCENZO MARADIAGA Dictated By: Vincenzo Maradiaga MD Signed By: Electronically signed by Vincenzo Maradiaga MD 11/05/24 0958 Radiology Impression Discussion of test interpretation with radiology: I have reviewed the radiologist's reading. Discharge Plan Discharge Clinical Impression: Elevated blood pressure reading Patient Disposition: Home, Self-Care Instructions: Heart Healthy Diet (DC), How to Take a Blood Pressure Reading (ED), Hypertension (ED) Additional Instructions: Your blood pressure was elevated while here however, there is no evidence of end organ damage at this time. It is crucial you follow up with your primary care provider about this. IF you are prescribed medications and/or you are taking over the counter medications - it is very important you continue to do so as prescribed / directed unless told otherwise. Follow up with your primary care provider. Return to the emergency department immediately if your symptoms worsen or if you develop any numbness, tingling, dizziness, shortness of breath, difficulty breathing, chest pain, blurry vision, loss of vision, nausea, vomiting, abdominal pain, fever, chills, back pain, or any other complaints. Please see the information below about our Patient Portal. If you are not yet enrolled in the [facility] Patient Portal, you will receive an enrollment email invitation following your visit to any [facility] care setting. You may also self-enroll in the Patient Portal by visiting our website: [email or web address] The following information is required to access the Patient Portal: - Your [facility] Medical Record Number - Your personal home email address (must match what is in your electronic medical record, Registration staff can assist with this) - Name - Date of Capabilities of the Patient Portal: - Message some providers - View upcoming appointments - Access your health summary, medical history, and visit history - View current conditions and allergies - View procedure and lab results - View your medications, including guidelines, side effects, and precautions - Complete pre-appointment questionnaires requested by your provider - Ready summary reports of your office visits and procedures To access the Patient Portal Mobile [employer], follow these directions: - Search [employer] in the [employer] Store or [employer] ([employer]) Store - Download the [facility] - Search for [facility] - Enter your login/password Prescriptions: No Action azithromycin 250 mg tablet 250 mg PO DAILY 4 Days Qty: 4 0RF prednisone 20 mg tablet 40 mg PO DAILY Qty: 8 0RF levalbuterol tartrate [Xopenex HFA] 45 mcg/actuation HFA aerosol inhaler 2 inh inhalation Q4-6H PRN (Reason: shortness of breath or wheezing) Qty: 15 0RF prednisone 20 mg tablet 60 mg PO DAILY Qty: 12 0RF prednisone 20 mg tablet 60 mg PO DAILY Qty: 12 0RF albuterol sulfate 1.25 mg/3 mL solution for nebulization 1.25 mg inhalation QID PRN (Reason: shortness of breath or wheezing) Qty: 90 0RF cyclobenzaprine 10 mg tablet 10 mg PO BEDTIME PRN (Reason: muscle spasm) Qty: 10 0RF Referrals: Aroldo Ryan MD [Primary Care Provider, Medical] Discharge Date/Time: 11/03/24 20:00 Print Language: Citizen Of [place]
--- NOTE | 2024-11-03 14:31 | ECG_ITS ---
Test Reason : ELEVATED HTN Blood Pressure : */* mmHG Vent. Rate : 94 BPM Atrial Rate : 94 BPM P-R Int : 156 ms QRS Dur : 72 ms QT Int : 362 ms P-R-T Axes : 50 -5 9 degrees QTcB Int : 452 ms Normal sinus rhythm with sinus arrhythmia Possible Left atrial enlargement Anterior infarct (cited on or before 20-May-2010) Abnormal ECG When compared with ECG of 09-Aug-2020 21:59, No significant change was found Referred By: Luzmaria Elizabeth Electronically Signed By: CHRISTINA MARADIAGA
[2024-11-03 14:45] LABS: MANUAL DIFF FLAG NO
[2024-11-03 14:54] LABS: Hematocrit 37.2 % (37.0-47.0); Hemoglobin 12.8 g/dl (12.0-16.0); Imm Gran Abs Auto 0.02 X10*3/uL (0.00-0.03); Imm Gran Pct Auto 0.3 % (0.0-0.4); Lymphocytes Absolute Auto 3.3 X10*3/uL (1.2-4.9); Mean Corpuscular HGB Conc 34.4 g/dl (31.0-35.0); Mean Corpuscular Hemoglobin 28.8 pg (27.0-33.0); Mean Corpuscular Volume 83.6 fL (80.0-98.0); NRBC Abs Auto 0.000 X10*3/uL (0.0-0.012); NRBC Pct Auto 0.0 /100WBC (0.0-0.2); Platelet Count 270 X10*3/uL (160-400); Red Blood Count 4.45 X10*6/uL (4.20-5.50); White Blood Count 7.9 X10*3/uL (4.8-10.8)
[2024-11-03 15:06] LABS: Alanine Aminotransferase 30 U/L (0-31); Albumin Level 4.9 g/dL (3.5-5.0); Alkaline Phosphatase 66 U/L (39-117); Anion Gap 14 (12-20); Aspartate Amino Transferase 24 U/L (5-31); Blood Urea Nitrogen 13 mg/dL (9-16); Calcium 9.5 mg/dL (8.4-10.2); Carbon Dioxide 27 mmol/L (22-29); Chloride 100 mmol/L (96-108); Creatinine Clr Calc Pharmacy 112.3; Estimated Glomerular Filt Rate > 60; Potassium 3.6 mmol/L (3.3-5.1); Sodium 137 mmol/L (135-145); Total Protein 8.0 g/dL (6.5-8.0)
[2024-11-03 15:17] LABS: Troponin-I High Sensitivity < 2.7 ng/L (<3.5-17.0)
[2024-11-03 19:01] VITALS: BP 158/88; PULSE 82; RESP 18; TEMP 36.6; O2SAT 97
[2024-11-03 19:30] VITALS: BP 166/93; PULSE 79; RESP 16; TEMP 36.6; O2SAT 95
--- OUTSIDE RECORDS SUMMARY | 2024-11-03 19:42 | XMS_ITS | Clinical Summary ---
Author Organization [address] [facility] Address [address] [place] [address] Phone Care Team Providers Care Quality Assurance Manager Name Role Phone Aroldo Ryan MD Primary Care Provider [phone] Allergies Active Allergy Reactions Criticality Noted Date Comments Zoila-Irwin(Acetamin-Ca Carb) 04/18/2021 Other Reaction(s): stomach pain Aspirin 02/18/2021 Aspirin-Sod Bicarb-Citric Acid GI intolerance 06/20/2012 Citric Acid 02/18/2021 Fluticasone High 12/08/2023 Other Reaction(s): Mouth tingling Fluticasone Propion-Salmeterol 05/30/2019 AIRDUO RESPICLICK 113-14 teeth pain Latex Rash High 04/18/2021 Salmeterol High 12/08/2023 Other Reaction(s): Mouth tingling Sodium Bicarbonate 02/18/2021 Sulfa (Sulfonamide Antibiotics) 02/18/2021 Sulfamethoxazole-Trimetho prim Anaphylaxis High 06/20/2012 BACTRIM Trimethoprim Low 12/08/2023 Other Reaction(s): UNKNOWN Medications albuterol 2.5 mg /3 mL (0.083 %) nebulizer solution Take 3 mL (2.5 mg total) by nebulization every 6 (six) hours if needed for wheezing. 75 mL 1 4 Active montelukast (SINGULAIR) 10 mg tablet Take 1 tablet (10 mg total) by mouth at bedtime. 90 tablet 1 4 Active fluticasone propion-salmete roL (ADVAIR DISKUS) 500-50 mcg/dose diskus inhaler Inhale 1 puff by mouth 2 (two) times a day. 1 each 11 5 Active predniSONE (DELTASONE) 20 mg tablet Take 1 tablet (20 mg total) by mouth 2 (two) times a day. for 3 days 5 Active Active Problems Problem Noted Date Diagnosed Date Primary osteoarthritis of left knee 02/04/2024 Chronic pain of left knee 02/04/2024 Calcific tendinitis of left shoulder 02/21/2021 Left carpal tunnel syndrome 02/21/2021 Allergic conjunctivitis, bilateral 03/16/2019 Moderate persistent asthma 03/16/2019 Perennial allergic rhinitis 03/16/2019 Low back pain without sciatica 10/09/2015 Wheezing 10/09/2015 Hematuria 07/27/2014 Bilateral knee pain 07/04/2014 Obesity 07/04/2014 Shoulder joint pain 07/04/2014 Anxiety and depression 06/20/2012 Encounters Date Type Department Care Team Description 11/03/2024 Telephone Adult Medicine [address] [address] Aroldo Ryan MD Hypertension from Last 3 Months Immunizations Name Administration Dates Next Due Influenza trivalent, with pr eservative (Fluzone; Afluria) 6mo and older 03/16/2013 PPD Test 10/09/2015,07/27/2014,08/03/2012 Pneumococcal conjugate 20 va lent (Prevnar 20, PCV 20) 2mo and older 03/13/2024 Tdap Tetanus diptheria acell ular pertussis (Boostrix; Adacel) 7yo and older 12/20/2021,06/20/2012 Surgical History Surgery Date Site/Laterality Comments TUBAL LIGATION PROCEDURE: HISTORICAL TUBAL LIGATION OTHER SURGICAL HISTORY PROCEDURE: ---- OTHER ----; COMMENT: mouth surgery KNEE ARTHROSCOPY W/ MENISCAL REPAIR PROCEDURE: [place] ARTHROSCOPY KNEE W/MENISCUS RPR MEDIAL/LATERAL Family History Medical History Relation Name Comments Asthma Brother 1 Heart attack Brother 2 Heart attack Father Breast cancer Mother's side aunt and cousin Ovarian cancer Neg Hx Pancreatic cancer Neg Hx Prostate cancer Neg Hx Relation Name Status Comments Brother 1 Alive htn Brother 2 Brother 3 Alive htn Brother 4 Alive Brother 5 Alive Father Alive cad, htn, hyper lipidemia, ulcers Mother Alive htn, Mother's side aunt and cousin Alive Sister Alive Social History Tobacco Use Types Packs/Day Years Used Date Smoking Tobacco: Never Smokeless Tobacco: Never Tobacco Cessation:Counseling Given: Not Answered Alcohol Use Standard Drinks/Week Comments No 0 (1 standard drink = 0.6 oz pur e alcohol) Comments No Sex and Gender Information Value Date Recorded Sex Assigned at Not on file Legal Sex Female 5:04 AM EST Gender Identity Not on file Sexual Orientation Not on file Obstetrics History Last Filed Vital Signs Vital Sign Reading Time Taken Comments Blood Pressure 121/81 06/20/2024 10:59 AM EDT Pulse 74 06/20/2024 10:59 AM EDT Temperature 36.3 C (97.3 F) 06/20/2024 10:59 AM EDT Respiratory Rate 16 06/20/2024 10:59 AM EDT Oxygen Saturation 95% 06/20/2024 10:59 AM EDT Inhaled Oxygen Concentration - - Weight 88.1 kg (194 lb 3.2 oz) 06/20/2024 10:59 AM EDT Height 162.6 cm (5' 4 ) 06/20/2024 10:59 AM EDT Body Mass Index 33.33 06/20/2024 10:59 AM EDT Plan of Treatment Health Maintenance Due Date Last Done Comments Breast Cancer Screening 1970 Hepatitis B Vaccines (1 of 3 - 19+ 3-dose series) 07/21/1990 Zoster Vaccines (1 of 2) 07/21/2021 Social Influencers of Health Screening 03/07/2022 Cholesterol Screening (Lipid Panel) 03/08/2022 03/08/2017 COVID-19 Vaccine (3 - 2023-2 5 season) 2023 05/04/2021, 04/13/2021 Depression Screening 03/29/2024 Influenza Vaccine (#1) 2024 03/16/2013 Cervical Cancer Screening: HPV 06/03/2027 06/02/2022 DTaP,Tdap,and Td Vaccines (3 - Td or Tdap) 12/21/2031 12/20/2021, 06/20/2012 Colorectal Cancer Screening: Colonoscopy 12/15/2033 12/16/2023 HIV Screening Completed 07/29/2014 Hepatitis C Screening Completed 07/29/2014 Pneumococcal Vaccine: 50+ Years Completed 03/13/2024 HIB Vaccines Aged Out No longer eligi ble based on patient's age to complete this topic HPV Vaccines Aged Out No longer eligi ble based on patient's age to complete this topic Hepatitis A Vaccines Aged Out No long er eligible based on patient's age to complete this topic IPV Vaccines Aged Out No longer eligi ble based on patient's age to complete this topic MMR Vaccines Aged Out No longer eligi ble based on patient's age to complete this topic Meningococcal ACWY Vaccine Aged Out N o longer eligible based on patient's age to complete this topic Meningococcal B Vaccine Aged Out No l onger eligible based on patient's age to complete this topic RSV Immunization Patients Under 20 months Aged Out No longer eligible b ased on patient's age to complete this topic Varicella Vaccines Aged Out No longer eligible based on patient's age to complete this topic Procedures Procedure Name Priority Date/Time Associated Diagnosis Comments COLONOSCOPY Routine 12/16/2023 HPV Routine 06/02/2022 LIPID PANEL Routine 03/08/2017 HEPATITIS C SCREENING Routine 07/29/2014 HIV SCREENING Routine 07/29/2014 from Last 3 Months or Most Recently Relevant to Health Maintenance Results * Colonoscopy (12/16/2023) Pathologist [facility] Colonoscopy Abstracted, no interpretation Anatomical Region Laterality Modality Other Historical Provider HEALTH MAINTENANCE Final Result * Cervical Cancer Screening: HPV (06/02/2022) Pathologist [facility] Cervical Cancer Screening: HPV Abstracted, negative Historical Provider HEALTH MAINTENANCE Final Result * (ABNORMAL) Lipid panel (03/08/2017) Pathologist [facility] LDL/HDL Ratio 3 0 - 4 Triglycerides 170(A) 0 - 150 mg/dL Cholesterol 190 0 - 200 mg/dL HDL 71 >=40 mg/dL LDL Cholesterol 85 0 - 100 mg/dL Blood Venous blood specimen / Unknown Historical Provider LAB BLOOD ORDERABLES Angelina l Result * HIV Screening (07/29/2014) HIV Screening Abstracted Historical Provider HEALTH MAINTENANCE Final Result * Hepatitis C Screening (07/29/2014) Hepatitis C Screening Abstracted Historical Provider HEALTH MAINTENANCE Final Result from Last 3 Months or Most Recently Relevant to Health Maintenance Insurance [facility] [employer] Care Teams Quality Assurance Manager Relationship Specialty Start Date End Date Aroldo Ryan MD [address] [place] [address] PCP - General Internal Medicine 01/26/1999
--- OUTSIDE RECORDS SUMMARY | 2024-11-03 19:42 | XMS_ITS ---
Author Name [facility] Organization Unknown Care Team Organization Name Specialty Phone Email Start Date End Da dameon [facility] 02/03/2022 11/15/2023
== END 2024-11-03 20:00 | disposition home or self-care (01) ==
PROVIDERS: Physician Assistant Medical; Emergency Provider Emergency Medicine; PCP Internal Medicine
DX: R03.0 Elevated blood-pressure reading, without diagnosis of hypertension (principal)
CPT/HCPCS: 36415; 71046; 80053; 84484; 85025; 93005; 99283

== ENCOUNTER → 2024-11-03 14:31 | Outpatient (BNV) | payer OTHER, SELFPAY | PROVIDERS: Emergency Provider Emergency Medicine; PCP Internal Medicine; Visit Provider Internal Medicine | DX: R94.31 Abnormal electrocardiogram [ECG] [EKG] (principal); R03.0 Elevated blood-pressure reading, without diagnosis of hypertension | CPT/HCPCS: 93010 ==

== ENCOUNTER → 2024-11-03 14:31 | Outpatient (BNV) | payer OTHER, SELFPAY | PROVIDERS: PCP Internal Medicine; Visit Provider Radiology Diagnostic Radiology | DX: I10 Essential (primary) hypertension (principal) | CPT/HCPCS: 71046 ==